=== PATIENT | male | born 1930 | race Two or more races ===

== ENCOUNTER 2018-11-23 11:36 | Outpatient (CLI) | payer OTHER ==
[~2018-11-23 11:36] MED LIST: ARICEPT5 MG; ELDEPRYL5 M1; SYNTHROID50 MCG; TAMS0.4C PO
== END 2018-11-23 11:47 | disposition home or self-care (01) ==
LOC: RAD 501 11:36
DX: J20.8 Acute bronchitis due to other specified organisms (principal); R05 Cough

== ENCOUNTER 2019-01-06 08:53 | Outpatient (CLI) | payer OTHER | END 2019-01-06 09:10 | disposition home or self-care (01) | LOC: TOM 08:53 | DX: D50.8 Other iron deficiency anemias (principal); R68.81 Early satiety; D50.0 Iron deficiency anemia secondary to blood loss (chronic) | CPT/HCPCS: 74178; Q9965 ==